=== PATIENT | female | born 1940 | race Caucasian/White ===

== ENCOUNTER → 2019-06-06 13:52 | Outpatient (CLI) | payer MEDICARE, OTHER, SELFPAY ==
[2019-05-09 13:48] VITALS: BMI 24.6
--- NOTE | 2019-06-06 13:56 | ECHOD_ITS ---
Reason For Study: Afib/Flutter Procedure This was a 2D Doppler, Color Flow transthoracic echocardiogram. Exam performed in department. Left Ventricle Normal LV size. Mild concentric left ventricular hypertrophy. The estimated ejection fraction is 60 %. Stage 3 diastolic dysfunction. No regional wall motion abnormalities noted. Right Ventricle Normal RV size. ICD or pacer leads identified within the right ventricle. Normal systolic function. Atria The left atrium is moderately enlarged. The right atrium is moderately enlarged. Mitral Valve There is moderate mitral annular calcification. Bileaflet diffuse mitral valve thickening. Mild focal mitral valve calcification, bileaflet. Mild-Moderate (1-2+) eccentric mitral valve insufficiency. Tricuspid Valve Normal tricuspid valve. Mild to moderate (1-2+) tricuspid valve insufficiency. Pulmonary artery systolic pressure is 40 mmHg. Aortic Valve Normal aortic valve. Trisinus/trileaflet aortic valve. Pulmonic Valve Normal pulmonic valve. Great Vessels Normal aortic root. The pulmonary artery is normal size. Normal inferior vena cava. Pericardium/Pleural No pericardial effusion. MMode/2D Measurements & Calculations LVIDd: 4.7 cm IVSd: 1.4 cm LA dimension: 4.7 cm LVIDs: 2.8 cm LVPWd: 1.0 cm RVDd: 4.5 cm FS: 41.0 % LAV(MOD-bp): 111.4 ml LA A4 area: 31.1 cm2 RA A4 area: 27.6 cm2 LAV(MOD-bp) Indexed: 61.3 ml/m2 LAV(MOD-sp2): 113.1 ml LAV(MOD-sp4): 115.0 ml Time Measurements MV dec time: 0.17 sec Doppler Measurements & Calculations MV E max sha: 129.4 cm/sec Lat Peak E' Sha: 15.4 cm/sec Med Peak E' Sha: 7.8 cm/sec MV A max sha: 27.5 cm/sec E/E' lat: 8.4 E/E' med: 16.5 MV E/A: 4.7 MV V2 max: 129.0 cm/sec MV P1/2t max sha: 129.0 cm/sec Ao V2 max: 150.4 cm/sec MV max P.7 mmHg MV P1/2t: 77.9 msec Ao max P.1 mmHg MV V2 mean: 59.1 cm/sec MV dec slope: 485.4 cm/sec2 MV mean P.7 mmHg MVA(P1/2t): 2.8 cm2 MV V2 VTI: 29.5 cm LV V1 max: 109.5 cm/sec MR max sha: 517.3 cm/sec PA V2 max: 124.2 cm/sec LV V1 max P.8 mmHg MR max P.0 mmHg MR mean sha: 372.3 cm/sec MR mean P.5 mmHg MR VTI: 161.7 cm PI end-d sha: 74.2 cm/sec TR max sha: 299.1 cm/sec TR max P.8 mmHg Interpretation Summary Normal LV size. Mild concentric left ventricular hypertrophy. The estimated ejection fraction is 60 %. Stage 3 diastolic dysfunction. Mild to moderate (1-2+) tricuspid valve insufficiency. Ordering Physician: Skip Waters Referring Physician: Logan Phan Performed By: Shawn Pabon RCS
== END ==
PROVIDERS: Family Provider Family Medicine; PCP Family Medicine; Referring Provider Internal Medicine Cardiovascular Disease; Visit Provider Internal Medicine Cardiovascular Disease
DX: I48.0 Paroxysmal atrial fibrillation (principal)
CPT/HCPCS: 93306

== ENCOUNTER → 2019-11-09 06:55 | Outpatient (REF) | payer MEDICARE, OTHER, SELFPAY ==
[2019-05-09 13:48] VITALS: BMI 24.6
[2019-11-09 07:58] LABS: Mean Corpuscular Hgb 28.5 pg (27.0-32.0); Mean Platelet Vol. 10.2 fl (6.2-12.0); Platelet Count 187 K/mm3 (150-450); RBC Distribution Width SD 44.8 fl (35.1-43.9); Red Blood Count 4.21 M/mm3 (4.2-5.4); White Blood Count 6.3 K/mm3 (4.4-11.0)
[2019-11-09 07:59] LABS: BUN 14 mg/dL (7-18); Creatinine, Serum 0.58 mg/dL (0.55-1.02); Glucose 87 mg/dL (74-106)
[2019-11-09 08:00] LABS: AST(SGOT) 21 U/L (15-37); Alanine Aminotransfer ALT/SGPT 19 U/L (13-56); Albumin, Serum 3.8 g/dL (3.2-5.0); Alkaline Phosphatase 119 U/L (45-117); Anion Gap 4 (5-15); Chloride 108 mmol/L (98-107); EST Glomerular Filtration Rate 106 mL/min (>60); Est Glom Filt Rate - Afr Amer 128 mL/min (>60); Potassium 3.9 mmol/L (3.5-5.1); Protein, Total 7.8 g/dL (6.4-8.2); Sodium Level 141 mmol/L (136-145)
[2019-11-09 08:03] LABS: Color, Urine Yellow (Yellow); Glucose, Dipstick Normal (Normal); Ketone-Dipstick Negative (Negative); Leukocyte Esterase-Dipstick Negative /ul (Negative); Nitrite-Dipstick Negative (Negative); Occult Blood-Urine Negative /ul (Negative); Protein-Dipstick Negative (Negative); Urine Bilirubin Dipstick Negative (Negative); Urine Clarity Clear (Clear); Urine Urobilinogen Normal (Normal)
== END ==
LOC: OLS.DANBUR 06:55
PROVIDERS: PCP Family Medicine; Visit Provider Family Medicine
DX: I48.91 Unspecified atrial fibrillation (principal); F03.90 Unspecified dementia, unspecified severity, without behavioral disturbance, psychotic disturbance, mood disturbance, and anxiety; F41.9 Anxiety disorder, unspecified; R14.0 Abdominal distension (gaseous)
CPT/HCPCS: 36415; 80053; 81002; 85027; 87086; 87088

== ENCOUNTER → 2020-12-04 05:00 | Outpatient (REF) | payer MEDICARE, OTHER, SELFPAY ==
[2019-05-09 13:48] VITALS: BMI 24.6
[2020-12-04 07:21] LABS: Hematocrit 40.8 % (37-47); Hemoglobin 12.6 g/dL (12.0-15.0); Mean Corp Hgb Conc 30.9 g/dL (32-36); Mean Corpuscular Hgb 28.4 pg (27.0-32.0); Mean Corpuscular Volume 91.9 fL (81-99); Mean Platelet Vol. 10.4 fl (6.2-12.0); Platelet Count 230 K/mm3 (150-450); RBC Distribution Width CV 13.1 % (11.6-14.6); Red Blood Count 4.44 M/mm3 (4.2-5.4); White Blood Count 7.4 K/mm3 (4.4-11.0)
[2020-12-04 08:15] LABS: Vitamin B12 502 pg/mL (211-911); Vitamin D,25 Hydroxy 11.6 ng/mL
[2020-12-04 08:25] LABS: AST(SGOT) 22 U/L (15-37); Alanine Aminotransfer ALT/SGPT 16 U/L (13-56); Albumin, Serum 3.9 g/dL (3.2-5.0); Alkaline Phosphatase 116 U/L (45-117); Anion Gap 5 (5-15); BUN 16 mg/dL (7-18); BUN/Creat Ratio 26.7 RATIO (10-20); Calcium,Total 9.1 mg/dL (8.5-10.1); Chloride 107 mmol/L (98-107); EST Glomerular Filtration Rate 102 mL/min (>60); Est Glom Filt Rate - Afr Amer 124 mL/min (>60); Globulin 4.1 g/dL (2.2-4.2); Glucose 92 mg/dL (74-106); Sodium Level 140 mmol/L (136-145); Thyroid Stim Hormone (TSH) 2.37 uIU/mL (0.358-3.74)
== END ==
LOC: OLS.DANBUR 05:00
PROVIDERS: PCP Family Medicine; Visit Provider Family Medicine
DX: F41.9 Anxiety disorder, unspecified (principal); I48.91 Unspecified atrial fibrillation; I49.5 Sick sinus syndrome; F02.80 Dementia in other diseases classified elsewhere, unspecified severity, without behavioral disturbance, psychotic disturbance, mood disturbance, and anxiety
CPT/HCPCS: 36415; 80053; 82306; 82607; 82746; 84443; 85027

== ENCOUNTER → 2021-01-29 05:00 | Outpatient (REF) | payer MEDICARE, OTHER, SELFPAY ==
[2019-05-09 13:48] VITALS: BMI 24.6
[2021-01-29 07:47] LABS: Cholesterol 118 mg/dL (200); High Density Lipoprotein 53 mg/dL; Triglycerides 46 mg/dL; Very Low Density Lipoprotein 9 mg/dL (5-40)
== END ==
LOC: OLS.DANBUR 05:00
PROVIDERS: PCP Family Medicine; Referring Provider Family Medicine; Visit Provider Family Medicine
DX: I48.91 Unspecified atrial fibrillation (principal); F41.9 Anxiety disorder, unspecified; F02.80 Dementia in other diseases classified elsewhere, unspecified severity, without behavioral disturbance, psychotic disturbance, mood disturbance, and anxiety; I49.5 Sick sinus syndrome; E78.5 Hyperlipidemia, unspecified
CPT/HCPCS: 36415; 80061

== ENCOUNTER → 2021-02-05 05:00 | Outpatient (REF) | payer MEDICARE, OTHER, SELFPAY ==
[2019-05-09 13:48] VITALS: BMI 24.6
[2021-02-05 07:33] LABS: Cholesterol 109 mg/dL (200); High Density Lipoprotein 51 mg/dL; Triglycerides 51 mg/dL; Very Low Density Lipoprotein 10 mg/dL (5-40)
== END ==
LOC: OLS.DANBUR 05:00
PROVIDERS: PCP Family Medicine; Visit Provider Family Medicine
DX: E78.5 Hyperlipidemia, unspecified (principal)
CPT/HCPCS: 36415; 80061

== ENCOUNTER → 2021-03-12 05:00 | Outpatient (REF) | payer MEDICARE, OTHER, SELFPAY ==
[2019-05-09 13:48] VITALS: BMI 24.6
[2021-03-12 09:02] LABS: Vitamin D,25 Hydroxy 73.4 ng/mL
== END ==
LOC: OLS.DANBUR 05:00
PROVIDERS: PCP Family Medicine; Visit Provider Family Medicine
DX: E55.9 Vitamin D deficiency, unspecified (principal)
CPT/HCPCS: 36415; 82306

== ENCOUNTER → 2021-05-06 05:00 | Outpatient (REF) | payer MEDICARE, OTHER, SELFPAY ==
[2021-05-05 14:05] VITALS: BMI 23.3
[2021-05-06 08:07] LABS: Mucous, Urine 0 SEEN /hpf (<or=2+)
[2021-05-06 08:26] LABS: Color, Urine Yellow (Yellow); Glucose, Dipstick Normal (Normal); Ketone-Dipstick Negative (Negative); Leukocyte Esterase-Dipstick 500 /ul (Negative); Nitrite-Dipstick Negative (Negative); Occult Blood-Urine 150 /ul (Negative); Protein-Dipstick 100 mg/dl (Negative); Specific Gravity, Urine 1.015 (1.002-1.030); Urine Bilirubin Dipstick Negative (Negative); Urine Clarity Cloudy (Clear); Urine Urobilinogen Normal (Normal)
[2021-05-06 08:32] LABS: Bacteria 1+ /hpf (None Seen); Red Blood Cells-Urine 10-25 SEEN /hpf (0-5); Squamous Epithelial Cells - UA 0-5 SEEN /hpf (5-10); White Blood Cells 50-100 SEEN /hpf (0-5)
== END ==
LOC: OLS.DANBUR 05:00
PROVIDERS: PCP Family Medicine; Referring Provider Internal Medicine Cardiovascular Disease; Visit Provider Internal Medicine Cardiovascular Disease
DX: E78.5 Hyperlipidemia, unspecified (principal); I49.5 Sick sinus syndrome; I48.11 Longstanding persistent atrial fibrillation; Z95.0 Presence of cardiac pacemaker
CPT/HCPCS: 81001

== ENCOUNTER 2021-05-06 08:00 | Day surgery (SDC) | payer MEDICARE, OTHER, SELFPAY ==
[2021-04-30 14:13] VITALS: BMI 24.6
--- NOTE | 2021-05-05 12:06 | RAD_ITS ---
STUDY: X-RAY CHEST REASON FOR EXAM: Female, 80 years old. For PPM generator change TECHNIQUE: PA and lateral views of the chest. COMPARISON: None. FINDINGS: Mild degree of increased interstitial markings at the lung bases suggests a mild degree of basilar scarring. There is no demonstrated pleural abnormality. There is mild cardiac enlargement. A left-sided dual-chamber pacemaker is seen. Normal mediastinum and britt. Normal visualized pulmonary arteries. There is atherosclerotic calcification of the aortic arch with tortuosity. There is demineralization of the osseous structures. Normal visualized ribs, clavicles, and shoulders. There is no demonstrated abnormality of the visualized soft tissue structures of the upper abdomen. RAD/Chest PA and Lateral IMPRESSION: Mild degree of basilar scarring. Electronically Signed: Delio De La Vega MD at 22:43 EDT , Service support ,
[2021-05-05 13:00] LABS: Hematocrit 37.9 % (37-47); Hemoglobin 11.6 g/dL (12.0-15.0); Mean Corp Hgb Conc 30.6 g/dL (32-36); Mean Corpuscular Hgb 27.6 pg (27.0-32.0); Mean Platelet Vol. 9.6 fl (6.2-12.0); Platelet Count 265 K/mm3 (150-450); RBC Distribution Width CV 14.2 % (11.6-14.6); Red Blood Count 4.21 M/mm3 (4.2-5.4); White Blood Count 7.7 K/mm3 (4.4-11.0)
[2021-05-05 13:09] LABS: International Normalized Ratio 1.3; Prothrombin Time (Protime)PT. 15.2 SECONDS (11.7-14.9)
[2021-05-05 13:36] LABS: Anion Gap 5 (5-15); BUN 14 mg/dL (7-18); Chloride 105 mmol/L (98-107); EST Glomerular Filtration Rate 126 mL/min (>60); Est Glom Filt Rate - Afr Amer 153 mL/min (>60); Glucose 77 mg/dL (74-106); Potassium 3.8 mmol/L (3.5-5.1); Sodium Level 138 mmol/L (136-145)
[2021-05-05 14:05] VITALS: BMI 23.3
--- NOTE | 2021-05-06 10:33 | CL.IE_ITS ---
Patient: JUSTIN WILSON Study Date: 05/06/2021 Performing: Skip Waters MD : 1940 Age: 80 Gender: female PROCEDURES PERFORMED [id number] REMOVAL+REPLACEMENT PACER-DUAL LEAD INDICATIONS Sinoatrial node dysfunction/Sick sinus syndrome PROCEDURE DETAILS The patient was brought to the Catheterization Lab in the postabsorptive nonsedated state. Infor med consent was obtained prior to the procedure. Local anesthetic was given subcutaneously to the le ft upper chest area with Lidocaine 2%. Incision was made to the left upper chest. PPM ventricular tamie d testing performed. PPM ventricular lead testing performed. PPM atrial lead testing performed. PPM g enerator was removed. Device pocket was irrigated with antibiotic. PPM generator was attached to the lead(s) and inserted into the pocket. Subcutaneous closure was completed with 3-0 Vicryl. Skin closur e was completed with 4-0 Vicryl. Instrument, sponge, and needle counts were noted to be normal. The p atient tolerated the procedure well. Estimated Blood Loss: 15 ml's IMPLANTED / EX-PLANTED DEVICES EXPLANTED DEVICE(S): PPM Generator - Environmental Systems Coordinator: [employer], Model # [id number] , Serial # [id number] IMPLANTED DEVICE(S): PPM Generator - Environmental Systems Coordinator: [employer], Model # [id number] , Serial # [id number] DEVICE PARAMETERS ATRIAL LEAD PARAMETERS: P wave- 0.5 (mV) impedence- 404 (OHMS) VENTRICULAR LEAD PARAMETERS: R wave- 6.6 (mV) Current- 1.2 (mA) threshold- 0.5 (V) impedence- 430 (OHMS) DEVICE PARAMETERS: Mode - VVIR lower rate - 50 upper rate - 130 rate response off Mode- VVIR Lower rate- 50 Upper rate- 130 CONCLUSIONS / RECOMMENDATIONS Device Conclusions: Successful implantation of a dual chamber pacemaker Device Recommendations: Follow up with Primary Care Physician PROCEDURE MEDICATIONS Versed 1 mg IV Oxygen: 2 L/min via nasal cannula Ancef 2 Gm IV @ 05/06/2021 09:29:52 Signed By Skip Waters MD On 05/06/2021 10:33:12 Skip Waters MD
== END 2021-05-06 11:55 | disposition skilled nursing facility (03) ==
LOC: CLSP 08:02
PROVIDERS: PCP Family Medicine; Referring Provider Internal Medicine Cardiovascular Disease; Visit Provider Internal Medicine Cardiovascular Disease
DX: I49.5 Sick sinus syndrome (principal); I48.0 Paroxysmal atrial fibrillation; I48.11 Longstanding persistent atrial fibrillation; I27.21 Secondary pulmonary arterial hypertension; I10 Essential (primary) hypertension; E78.5 Hyperlipidemia, unspecified; F03.90 Unspecified dementia, unspecified severity, without behavioral disturbance, psychotic disturbance, mood disturbance, and anxiety; F41.9 Anxiety disorder, unspecified; Z79.01 Long term (current) use of anticoagulants; Z79.899 Other long term (current) drug therapy; Z95.0 Presence of cardiac pacemaker; Z96.652 Presence of left artificial knee joint
CPT/HCPCS: 33228; 36415; 71046; 80048; 81001; 85027; 85610; 99152; 99153; J7040; J7050

== ENCOUNTER 2021-12-22 06:45 | Outpatient (REF) | payer MEDICARE, OTHER, SELFPAY ==
[2021-12-22 06:46] LABS: Bacteria 0 SEEN /hpf (None Seen); Mucous, Urine 0 SEEN /hpf (<or=2+); Red Blood Cells-Urine 0 SEEN /hpf (0-5); Squamous Epithelial Cells - UA 0 SEEN /hpf (5-10); White Blood Cells 0 SEEN /hpf (0-5)
[2021-12-22 07:02] LABS: Color, Urine Yellow (Yellow); Glucose, Dipstick Normal (Normal); Ketone-Dipstick Negative (Negative); Leukocyte Esterase-Dipstick Negative /ul (Negative); Nitrite-Dipstick Negative (Negative); Occult Blood-Urine 10 /ul (Negative); Protein-Dipstick Negative (Negative); Specific Gravity, Urine 1.015 (1.002-1.030); Urine Bilirubin Dipstick Negative (Negative); Urine Clarity Clear (Clear); Urine Urobilinogen Normal (Normal)
== END 2021-12-22 23:59 | disposition home or self-care (01) ==
LOC: OLS.DANBUR 06:45
PROVIDERS: PCP Family Medicine; Visit Provider Family Medicine
DX: N39.0 Urinary tract infection, site not specified (principal)
CPT/HCPCS: 81001; 87086; 87088

== ENCOUNTER 2021-12-29 21:03 | Emergency (ER) | payer MEDICARE, OTHER, SELFPAY ==
[2021-12-29 21:04] VITALS: BP 120/57; PULSE 53; RESP 16; TEMP 36.7; O2SAT 97; BMI 23.3
[2021-12-29 22:09] VITALS: O2SAT 96
--- NOTE | 2021-12-29 22:25 | CT_ITS ---
STUDY: CT BRAIN WITHOUT CONTRAST REASON FOR EXAM: Female, 81 years old. Head injury, s/p fall RADIATION DOSAGE (If Supplied By Facility): CTDIvol = ( 44.99 ) mGy, DLP = ( 1659.71 ) mGycm TECHNIQUE: Transaxial CT imaging of the brain was performed without administration of intravenous contrast material. Individualized dose optimization techniques were used for this CT. COMPARISON: No relevant priors. FINDINGS: Normal soft tissue structures. Normal calvarium. Normal size ventricles and extra-axial spaces for the patient''s age. Normal white matter tracts of the cerebral hemispheres. Normal basal ganglia and thalami. Normal brainstem. Normal cerebellum. There is no intracranial hemorrhage. There are no findings of an acute ischemic infarction. Normal visualized paranasal sinuses. CT/Brain/Head without Contrast IMPRESSION: Normal unenhanced CT scan of the brain. Electronically Signed: Andrew Adams MD at 23:05 EDT ,
[2021-12-29] MEDS: LORazepam 2 MG/ML Syringe 1 MG IV (22:30)
--- NOTE | 2021-12-29 23:43 | ED.VIS.FALL ---
HPI HPI - Fall History of Present Illness Chief Complaint: Fall Informant: SNF and other (Caregiver) Occured/Mechanism Occurred: Weeks (2) Pain/Injury Pain Location: head Worsened by: Nothing Relieved by: Nothing Associated Symptoms Associated Symptoms: Negative for Parasthesias, Weakness, Inability to ambulate and Loss of consciousness Narrative Narrative: Patient presents after a fall that occurred on 12/17/2021. Caregiver noticed that the patient had unequal pupils yesterday. Caregiver also noticed that the patient started having a shuffling gait yesterday. There is no reported loss of consciousness after the fall. Caregiver noticed the redness to the right side of her head and face. He also noticed an abrasion on her nose. He states the patient is otherwise acting normally. Patient has a history of dementia and is a poor historian. [facility] Medical History Anxiety Dementia Diastolic dysfunction Hyperlipidemia Longstanding persistent atrial fibrillation Paroxysmal atrial fibrillation Secondary pulmonary arterial hypertension Sick sinus syndrome Home Medications alprazolam 0.25 mg tablet 0.25 mg PO BID PRN 05/09/19 [History Last Taken Unknown] apixaban 5 mg tablet 5 mg PO BID 05/09/19 [History Last Taken 05/04/21] donepezil 5 mg tablet 5 mg PO DAILY 05/09/19 [History Last Taken Unknown] memantine 10 mg tablet 10 mg PO BID 05/09/19 [History Last Taken Unknown] mirabegron 25 mg tablet,extended release 24 hr 25 mg PO DAILY 05/09/19 [History Last Taken Unknown] simvastatin 20 mg tablet 20 mg PO QHS 05/09/19 [History Last Taken Unknown] venlafaxine 37.5 mg capsule,extended release 24 hr 37.5 mg PO DAILY 05/09/19 [History Last Taken Unknown] Allergy/AdvReac Type Severity Reaction Status Date / Time erythromycin base Allergy Rash Verified 12/29/21 21:08 Family History Other Poor historian Surgical History 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) Presence of permanent cardiac pacemaker (05/06/21) Social History Smoking Status: Never smoker ROS ROS ED Review of Systems ROS Unobtainable: due to mental condition EXAM Physical Exam Const Vital Signs: 12/29/21 21:04 12/29/21 22:09 Temperature 98.1 F Temperature Source Temporal Pulse Rate 53 L Respiratory Rate 16 Respiratory Effort Normal Non-Labored Respiratory Depth Normal Respiratory Pattern Normal Blood Pressure 120/57 L Blood Pressure Mean 78 Pulse Ox 97 96 Oxygen Delivery Method Room Air Positive well nourished and well developed General Appearance ED: well developed and NAD HEENT HEENT Narrative: There is a superficial abrasion over the bridge of the nose. There is no active bleeding. There is no bony crepitance or step-off. Eyes EOMs intact bilaterally Eyes Narrative: The left pupil was 5 mm and reactive. The right pupil was 4 mm and reactive. Neck full ROM Resp normal respiratory effort and clear to auscultation bilaterally Cardio regular rate and regular rhythm GI non-tender Palpation: soft Neuro CN's II-XII intact bilaterally, moves all extremities, no focal motor deficits and no sensory deficits noted Sensorium / Orientation: alert MDM MDM MDM Narrative Medical decision making narrative: Patient was given a dose of Ativan here. CT scan of the brain was obtained. There is no acute intracranial abnormality. This was interpreted by the radiologist and reviewed by myself. Caregiver was advised of the findings. Patient will be discharged back to the extended care facility. Caregiver understood and was agreeable with the plan. All questions were answered. Radiography Diagnostic Testing: Clinical Impression(s) from Imaging Studies Brain CT 12/29/21 22:25 IMPRESSION: Normal unenhanced CT scan of the brain. Electronically Signed: Andrew Adams MD at 23:05 EDT , Discharge Plan Triage Chief Complaint: Fall ED Provider: Troy Romo Dx/Rx/DC Orders Clinical Impression: Closed head injury Instructions: ED Head Injury (Adult) Prescriptions: No Action venlafaxine [Effexor XR] 37.5 mg capsule,extended release 24hr 37.5 mg PO DAILY RF: 0 memantine [Namenda] 10 mg tablet 10 mg PO BID RF: 0 donepezil [Aricept] 5 mg tablet 5 mg PO DAILY RF: 0 simvastatin 20 mg tablet 20 mg PO QHS RF: 0 Eliquis 5 mg tablet 5 mg PO BID RF: 0 Myrbetriq 25 mg tablet extended release 24 hr 25 mg PO DAILY RF: 0 alprazolam 0.25 mg tablet 0.25 mg PO BID PRN (Reason: Anxiety) RF: 0 Primary Care Provider: Logan Phan Referrals: Logan Phan MD [Primary Care Provider] - 5-7 Days Disposition Disposition: Home, Self Care
--- NOTE | 2021-12-29 23:45 | ED.RN ---
NURSE TO NURSE CALLED TO SARABJIT DOS SANTOS
[2021-12-30 00:08] VITALS: RESP 16
== END 2021-12-30 00:08 | disposition skilled nursing facility (03) ==
PROVIDERS: Emergency Provider Emergency Medicine; PCP Family Medicine; Visit Provider Emergency Medicine
DX: S00.31XA Abrasion of nose, initial encounter (principal); F03.90 Unspecified dementia, unspecified severity, without behavioral disturbance, psychotic disturbance, mood disturbance, and anxiety; I27.21 Secondary pulmonary arterial hypertension; I48.0 Paroxysmal atrial fibrillation; W19.XXXA Unspecified fall, initial encounter; E78.5 Hyperlipidemia, unspecified; Z79.01 Long term (current) use of anticoagulants; Z79.899 Other long term (current) drug therapy; Z96.652 Presence of left artificial knee joint; Z95.0 Presence of cardiac pacemaker
CPT/HCPCS: 70450; 96374; 99285; A4216

== ENCOUNTER → 2022-02-04 | Outpatient (REF) | payer MEDICARE, SELFPAY ==
[2022-02-04 08:30] LABS: Hemoglobin 10.6 g/dL (12.0-15.0); Mean Corp Hgb Conc 30.3 g/dL (32-36); Mean Corpuscular Hgb 28.8 pg (27.0-32.0); Mean Corpuscular Volume 95.1 fL (81-99); Mean Platelet Vol. 10.1 fl (6.2-12.0); Platelet Count 184 K/mm3 (150-450); RBC Distribution Width CV 14.5 % (11.6-14.6); RBC Distribution Width SD 50.1 fl (35.1-43.9); Red Blood Count 3.68 M/mm3 (4.2-5.4); White Blood Count 5.9 K/mm3 (4.4-11.0)
[2022-02-04 09:00] LABS: ALB/GLOB Ratio 0.9 RATIO (0.9-2.4); AST(SGOT) 25 U/L (15-37); Alanine Aminotransfer ALT/SGPT 15 U/L (13-56); Albumin, Serum 3.7 g/dL (3.2-5.0); Alkaline Phosphatase 108 U/L (45-117); Anion Gap 5 (5-15); BUN 20 mg/dL (7-18); BUN/Creat Ratio 37.8 RATIO (10-20); Calcium,Total 8.6 mg/dL (8.5-10.1); Chloride 108 mmol/L (98-107); Creatinine, Serum 0.53 mg/dL (0.55-1.02); EST Glomerular Filtration Rate 118 mL/min (>60); Est Glom Filt Rate - Afr Amer 143 mL/min (>60); Globulin 3.9 g/dL (2.2-4.2); Glucose 85 mg/dL (74-106); Potassium 3.9 mmol/L (3.5-5.1); Protein, Total 7.6 g/dL (6.4-8.2); Sodium Level 140 mmol/L (136-145)
== END | disposition home or self-care (01) ==
LOC: OLS.DANBUR 05:00
PROVIDERS: PCP Family Medicine; Referring Provider Family Medicine; Visit Provider Family Medicine
DX: M79.89 Other specified soft tissue disorders (principal)
CPT/HCPCS: 36415; 80053; 85027

== ENCOUNTER 2022-04-15 20:59 | Emergency (ER) | payer OTHER, SELFPAY ==
[2022-04-15 21:00] VITALS: BP 165/101; PULSE 61; RESP 15; TEMP 36.2; O2SAT 99; BMI 26.3
--- NOTE | 2022-04-15 23:37 | CT_ITS ---
EXAM: CT HEAD WITHOUT INTRAVENOUS CONTRAST CLINICAL INDICATION: trauma/fall TECHNIQUE: Multiple axial images were obtained of the head without intravenous contrast. This CT exam was performed using one or more of the following dose reduction techniques: automated exposure control, adjustment of the mA and/or kV according to patient size, and/or use of iterative reconstruction technique. This report was created using [employer] report generation technology. COMPARISON: 12/29/2021 FINDINGS: BRAIN AND EXTRA-AXIAL SPACES: Diffuse cerebral volume loss. Periventricular small vessel ischemic changes. No intra- or extra-axial hemorrhage. No intracranial mass or mass effect. Posterior fossa structures are unremarkable. No hydrocephalus. Basal cisterns are patent. BONES/JOINTS: Incompletely visualized fracture involving the anterior and lateral margins of the right maxillary sinus. No discrete lytic or blastic abnormalities. SOFT TISSUES: Significant right periorbital and maxillary soft tissue swelling. VASCULATURE: Vascular calcifications. SINUSES: Blood in the right maxillary sinus. MASTOID AIR CELLS: Unremarkable. Clear. ORBITS: Visualized globes, extraocular muscles, optic nerves and retrobulbar fat appear unremarkable. CT/Brain/Head without Contrast IMPRESSION: 1. No acute intracranial abnormalities. 2. Age-related changes. 3. Significant right periorbital and maxillary soft tissue swelling. 4. Incompletely visualized fracture involving the anterior and lateral margins of the right maxillary sinus. Electronically Signed: Valdo Easley MD at 0:52 EDT ,
--- NOTE | 2022-04-15 23:38 | ED.VIS.FALL ---
HPI HPI - Fall History of Present Illness Chief Complaint: Head Injury Informant: patient and friend Occured/Mechanism Occurred: Today Mechanism/Context: Yes same level fall and Yes trip Narrative: while walking around end of her bed in assisted living Pain/Injury Location: face/head Current Severity: Mild Maximum Severity: Moderate Worsened by: palpation Relieved by: leaving alone Associated Symptoms Length of loss of consciousness: unk if LOC or not Narrative Narrative: Assisted living patient with severe dementia had a trip and fall today, found facedown awake with right facial/head trauma. No vomiting since then. Friend is here, no family is in this area, she states she is at her baseline mental status as far she knows her. Is DNRCC only. Friend states that she helped her into and out of the car to get here, and she moves all her extremities very well without any difficulty. [facility] Medical History Anxiety Dementia Diastolic dysfunction Hyperlipidemia Longstanding persistent atrial fibrillation Paroxysmal atrial fibrillation Secondary pulmonary arterial hypertension Sick sinus syndrome Home Medications apixaban 5 mg tablet (Eliquis) 5 mg PO BID 05/09/19 [History Last Taken 05/04/21] donepezil 5 mg tablet (Aricept) 5 mg PO DAILY 05/09/19 [History Last Taken Unknown] memantine 10 mg tablet (Namenda) 10 mg PO BID 05/09/19 [History Last Taken Unknown] mirabegron 25 mg tablet,extended release 24 hr (Myrbetriq) 25 mg PO DAILY 05/09/19 [History Last Taken Unknown] simvastatin 20 mg tablet 20 mg PO QHS 05/09/19 [History Last Taken Unknown] Allergy/AdvReac Type Severity Reaction Status Date / Time erythromycin base Allergy Rash Verified 12/29/21 21:08 Family History Other Poor historian Surgical History 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) Presence of permanent cardiac pacemaker (05/06/21) Social History Smoking Status: Never smoker ROS [facility] ED ENT ENT ED: Reports facial pain EXAM Physical Exam Const Vital Signs: 04/15/22 21:00 04/15/22 23:24 04/16/22 02:29 Temperature 97.2 F L Temperature Source Temporal Pulse Rate 61 72 Respiratory Rate 15 16 Respiratory Effort Normal Blood Pressure 165/101 H Blood Pressure Mean 122 Pulse Ox 99 94 Oxygen Delivery Method Room Air Room Air Room Air Positive well nourished and well developed General Appearance ED: well developed and NAD HEENT Reports TM's clear and moist mucous membranes HEENT Narrative: Patient has obvious contusion and abrasion to the right face with diffuse swelling in the right periorbital area, zygoma, down into the maxilla. Tender in the zygomatic arch, no deformities or instability, nontender at the maxilla. No nasal tenderness or active epistaxis. No septal hematoma. normocephalic Tympanic Membrane ED: Yes TM's clear Eyes PERRL and EOMs intact bilaterally Eyes Narrative: No evidence of globe trauma. Limited evaluation of the right eye due to swollen eyelids and difficulty opening Visual Acuity: other Other Details: no entrapment or pain with extraocular movements Neck full ROM and supple General: Negative for tenderness Chest Wall inspection of chest normal and palpation of chest normal Chest: symmetrical chest wall rise; Negative for crepitus or tenderness Resp normal respiratory effort and clear to auscultation bilaterally Percussion: other equal BS bilat Cardio regular rate, regular rhythm and no murmurs Rate: regular rate Rhythm: regular rhythm GI non-tender and non-distended Auscultation: normoactive bowel sounds Palpation: soft Back/Spine no CVA tenderness General Back: other FROM Cervical Spine: Negative for cervical spine tenderness Thoracic Spine / Upper Back: Negative for thoracic spinal tenderness Lumbar Spine / Lower Back: Negative for lumbar spinal tenderness Extremity normal to inspection General Extremety ED: Negative for edema, pulses abnormal or tenderness General Extremity: Negative for edema or pulses abnormal Neuro CN's II-XII intact bilaterally and no sensory deficits noted Neuro Narrative: Disoriented. At baseline per friend. Lexie Coma Scale: document GCS findings Spontaneous Obeys Commands Confused 14 Sensorium / Orientation: awake and alert Motor Exam: strength 5/5 throughout Skin no rashes or lesions noted and no wounds Lesions: no lesions Rashes: no rashes MDM MDM MDM Narrative Medical decision making narrative: CT does show maxillary sinus wall fracture on the right. No intracranial injury. Very unlikely to be surgical, she can follow-up with otolaryngology, we do not have anyone on-call to discuss with agnieszka. These do not routinely require prophylactic antibiotics. Advised not to blow her nose, and discharged back to [facility] with appropriate instructions and an ice pack. Radiography Diagnostic Testing: Clinical Impression(s) from Imaging Studies Brain CT 04/15/22 23:37 IMPRESSION: 1. No acute intracranial abnormalities. 2. Age-related changes. 3. Significant right periorbital and maxillary soft tissue swelling. 4. Incompletely visualized fracture involving the anterior and lateral margins of the right maxillary sinus. Electronically Signed: Valdo Easley MD at 0:52 EDT , Discharge Plan Triage Chief Complaint: Head Injury ED Provider: Mumtaz Jalloh Dx/Rx/DC Orders Clinical Impression: Fracture of maxillary sinus, Closed head injury, Accidental fall Instructions: Facial Fracture Prescriptions: No Action memantine [Namenda] 10 mg tablet 10 mg PO BID donepezil [Aricept] 5 mg tablet 5 mg PO DAILY simvastatin 20 mg tablet 20 mg PO QHS Eliquis 5 mg tablet 5 mg PO BID Myrbetriq 25 mg tablet extended release 24 hr 25 mg PO DAILY Primary Care Provider: Logan Phan Referrals: Bertin Telles MD [STAFF PHYSICIAN] - (Call for appointment) Logan Phan MD [Primary Care Provider] - Activity Restrictions/Additional Instructions: You have further evaluation of your right cheek bone fracture, call the ENT specialist above for an appointment. Very unlikely to be surgical, usually these heal on their own without the need for antibiotics. Avoid blowing nose as this could cause significant worsening swelling from air tracking up into the soft tissues of the face. Applying ice as needed is okay. Disposition Disposition: Home, Self Care
[2022-04-16 02:29] VITALS: PULSE 72; RESP 16; O2SAT 94
--- NOTE | 2022-04-16 03:40 | ED.RN ---
Report called to the nurse April at [place]. Denies questions. Family at bedside will be transporting patient back to [place].
[2022-04-16 03:55] VITALS: BP 154/61; PULSE 71; RESP 16
== END 2022-04-16 03:56 | disposition home or self-care (01) ==
PROVIDERS: Emergency Provider Emergency Medicine; PCP Family Medicine; Visit Provider Emergency Medicine
DX: S02.40CA Maxillary fracture, right side, initial encounter for closed fracture (principal); W18.09XA Striking against other object with subsequent fall, initial encounter; Y92.099 Unspecified place in other non-institutional residence as the place of occurrence of the external cause; I48.11 Longstanding persistent atrial fibrillation; I27.21 Secondary pulmonary arterial hypertension; I49.5 Sick sinus syndrome; E78.5 Hyperlipidemia, unspecified; Z66 Do not resuscitate; F03.90 Unspecified dementia, unspecified severity, without behavioral disturbance, psychotic disturbance, mood disturbance, and anxiety; F41.9 Anxiety disorder, unspecified; Z79.01 Long term (current) use of anticoagulants; Z79.899 Other long term (current) drug therapy; Z96.652 Presence of left artificial knee joint; Z95.0 Presence of cardiac pacemaker
CPT/HCPCS: 70450; 99282

== ENCOUNTER → 2023-03-03 | Outpatient (REF) | payer OTHER, SELFPAY ==
[2023-03-03 07:34] LABS: Hematocrit 33.7 % (37-47); Mean Corp Hgb Conc 29.7 g/dL (32-36); Mean Corpuscular Volume 94.4 fL (81-99); Mean Platelet Vol. 10.8 fl (6.2-12.0); Platelet Count 147 K/mm3 (150-450); RBC Distribution Width CV 15.1 % (11.6-14.6); RBC Distribution Width SD 53.2 fl (35.1-43.9); Red Blood Count 3.57 M/mm3 (4.2-5.4); White Blood Count 5.8 K/mm3 (4.4-11.0)
[2023-03-03 07:51] LABS: AST(SGOT) 14 U/L (15-37); Alanine Aminotransfer ALT/SGPT 9 U/L (13-56); Albumin, Serum 3.2 g/dL (3.2-5.0); Alkaline Phosphatase 108 U/L (45-117); Anion Gap 5 (5-15); BUN 20 mg/dL (7-18); BUN/Creat Ratio 36.9 RATIO (10-20); Calcium,Total 8.7 mg/dL (8.5-10.1); Chloride 111 mmol/L (98-107); Creatinine, Serum 0.54 mg/dL (0.55-1.02); EST Glomerular Filtration Rate 114 mL/min (>60); Est Glom Filt Rate - Afr Amer 138 mL/min (>60); Globulin 3.3 g/dL (2.2-4.2); Glucose 92 mg/dL (74-106); Protein, Total 6.5 g/dL (6.4-8.2); Sodium Level 143 mmol/L (136-145)
== END ==
LOC: OLS.DANBUR 05:00
PROVIDERS: PCP Family Medicine
DX: I48.91 Unspecified atrial fibrillation (principal); I49.5 Sick sinus syndrome
CPT/HCPCS: 36415; 80053; 85027

== ENCOUNTER 2023-03-19 16:21 | Emergency (ER) | payer OTHER, SELFPAY ==
[2023-03-19 16:22] VITALS: BP 148/78; PULSE 87; RESP 18; TEMP 36.6; O2SAT 97; BMI 32.3
[2023-03-19 16:46] VITALS: BP 121/60; PULSE 51; RESP 16; O2SAT 97
[2023-03-19] MEDS: predniSONE 20 MG Tablet 40 MG PO (16:55)
--- NOTE | 2023-03-19 17:03 | EX.ED.DYSGE1 ---
HPI History of Present Illness Chief Complaint: Allergic Reaction Informant: patient Onset/Context/Timing Onset: Today Context: Sudden Onset Timing: Continuous Quality: Redness, swelling Location: Left face and lower lip Worsened by: Possibly food Relieved by: Nothing Narrative Narrative: Patient presents today with possible allergic reaction that began today. Patient has a history of dementia and is a poor informant. half-way staff reports that the patient was eating and started developing some redness and swelling to the left side of her face and her lower lip. half-way staff reports that the patient did have some mild emesis after eating. Family denies any difficulty breathing. Family states patient does have a history of prior allergic reactions. [facility] Medical History Anxiety Dementia Diastolic dysfunction Hyperlipidemia Longstanding persistent atrial fibrillation Paroxysmal atrial fibrillation Secondary pulmonary arterial hypertension Sick sinus syndrome Home Medications apixaban 5 mg tablet (Eliquis) 5 mg PO BID 05/09/19 [History Last Taken 05/04/21] donepezil 5 mg tablet (Aricept) 5 mg PO DAILY 05/09/19 [History Last Taken Unknown] memantine 10 mg tablet (Namenda) 10 mg PO BID 05/09/19 [History Last Taken Unknown] mirabegron 25 mg tablet,extended release 24 hr (Myrbetriq) 25 mg PO DAILY 05/09/19 [History Last Taken Unknown] simvastatin 20 mg tablet 20 mg PO QHS 05/09/19 [History Last Taken Unknown] alprazolam 0.25 mg tablet (Xanax) 0.25 mg PO DAILY 06/01/22 [History Last Taken Unknown] loperamide 2 mg capsule 2 mg PO Q6H PRN 06/01/22 [History Last Taken Unknown] Allergy/AdvReac Type Severity Reaction Status Date / Time erythromycin base Allergy Rash Verified 03/19/23 16:27 Family History Other Poor historian Surgical History 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) Presence of permanent cardiac pacemaker (05/06/21) Social History Smoking Status: Never smoker ROS ROS ED Review of Systems ROS Unobtainable: due to mental status Constitutional Constitutional ED: Denies chills or fever(s) ENT ENT ED: Denies rhinorrhea or sore throat Cardiovascular Cardiovascular: Denies chest pain Respiratory/Chest Respiratory/Chest: Denies cough or dyspnea Gastrointestinal Gastrointestinal: Reports vomiting; Denies abdominal pain Integumentary Reports rash; Denies abscess Allergic/Immunologic Allergic/Immunologic ED: Reports mouth swelling and urticaria EXAM Physical Exam Const Vital Signs: 03/19/23 16:22 03/19/23 16:46 Temperature 97.8 F Temperature Source Temporal Pulse Rate 87 51 L Respiratory Rate 18 16 Blood Pressure 148/78 H 121/60 H Blood Pressure Mean 101 80 Pulse Ox 97 97 Oxygen Delivery Method Room Air Room Air Positive well nourished and well developed General Appearance ED: well developed and NAD HEENT Reports moist mucous membranes HEENT Narrative: Oropharynx is clear. Airway is patent. Neck supple and no JVD Resp normal respiratory effort and clear to auscultation bilaterally Cardio regular rate and regular rhythm GI non-tender and non-distended Palpation: soft Neuro CN's II-XII intact bilaterally and no sensory deficits noted Sensorium / Orientation: alert Motor Exam: strength 5/5 throughout Psych mental status grossly normal Skin Skin Narrative: There is some edema and erythema over the left cheek and entire lower lip. There are no vesicles or pustules noted. There are no petechia noted. There is no involvement of the mucous membranes. MDM MDM MDM Narrative Medical decision making narrative: Daughter was at the bedside and states this is very similar to prior allergic reactions. Patient will be given a dose of prednisone here. Patient was already given a dose of Benadryl by shelter staff. Patient will be observed in the emergency department. Patient will be discharged back to the extended care facility. Patient was instructed to follow-up with her primary care physician in 5 to 7 days. Daughter understood and was agreeable with plan. All questions were answered. Treatment and Re-Evaluation :: Patient was given a dose of prednisone here. Better on reevaluation. The erythema and edema has improved. Patient will be discharged back to the extended care facility. Patient was instructed to use Benadryl as needed for any swelling. Family understood and was agreeable with the plan. All questions were answered. Discharge Plan Triage Chief Complaint: Allergic Reaction ED Provider: Troy Romo Dx/Rx/DC Orders Clinical Impression: Allergic reaction Instructions: ED General Allergic Reactions Prescriptions: No Action memantine [Namenda] 10 mg tablet 10 mg PO BID donepezil [Aricept] 5 mg tablet 5 mg PO DAILY simvastatin 20 mg tablet 20 mg PO QHS Eliquis 5 mg tablet 5 mg PO BID Myrbetriq 25 mg tablet extended release 24 hr 25 mg PO DAILY loperamide 2 mg capsule 2 mg PO Q6H PRN alprazolam [Xanax] 0.25 mg tablet 0.25 mg PO DAILY Primary Care Provider: Logan Phan Referrals: Logan Phan MD [Primary Care Provider] - 5-7 Days Disposition Disposition: Home, Self Care
[2023-03-19 18:32] VITALS: BP 139/76; PULSE 51; RESP 18
--- NOTE | 2023-03-19 18:37 | ED.RN ---
THIS RN ATTEMPTED TO CALL CHANELLE MARTIN AT [facility] TO GIVE PT REPORT. PHONE WENT TO VOICEMAIL.
== END 2023-03-19 18:35 | disposition home or self-care (01) ==
LOC: ED 17:29
PROVIDERS: Emergency Provider Emergency Medicine; PCP Family Medicine; Visit Provider Emergency Medicine
DX: T78.40XA Allergy, unspecified, initial encounter (principal); R60.9 Edema, unspecified; R11.10 Vomiting, unspecified; F03.90 Unspecified dementia, unspecified severity, without behavioral disturbance, psychotic disturbance, mood disturbance, and anxiety; I27.21 Secondary pulmonary arterial hypertension; I48.11 Longstanding persistent atrial fibrillation; E78.5 Hyperlipidemia, unspecified; Z79.01 Long term (current) use of anticoagulants; Z79.899 Other long term (current) drug therapy
CPT/HCPCS: 99284

== ENCOUNTER 2023-03-23 21:11 | Emergency (ER) | payer OTHER, SELFPAY ==
[2023-03-23 21:12] VITALS: BP 143/90; PULSE 75; RESP 18; TEMP 37; O2SAT 95; BMI 29.0
--- NOTE | 2023-03-23 21:22 | CT_ITS ---
STUDY: CT BRAIN WITHOUT CONTRAST REASON FOR EXAM: Female, 82 years old. fall RADIATION DOSAGE (If Supplied By Facility): CTDIvol = ( 44.99 ) mGy, DLP = ( 829.85 ) mGycm TECHNIQUE: Transaxial CT imaging of the brain was performed without administration of intravenous contrast material. Individualized dose optimization techniques were used for this CT. COMPARISON: April 15, 2022. FINDINGS: Normal soft tissue structures. Normal calvarium. Calcific plaquing of the cavernous carotids Moderate atrophy and periventricular white matter ischemic changes.. Normal basal ganglia and thalami. Normal brainstem. Normal cerebellum. There is no intracranial hemorrhage. There are no findings of an acute ischemic infarction. Normal visualized paranasal sinuses. Postsurgical changes of the left orbit. CT/Brain/Head without Contrast IMPRESSION: Moderate atrophy and periventricular white matter ischemic change. No evidence for acute intracranial hemorrhage. Electronically Signed: Greg Ward MD at 21:43 EDT ,
--- NOTE | 2023-03-23 21:23 | EDS_ITS ---
HPI HPI - Fall History of Present Illness Chief Complaint: Fall Detail of Chief Complaint: Fall Informant: family Narrative Narrative: Patient presents to the emergency department after sustaining a fall. Patient p resents from extended-care facility and the aide was helping her get ready for bed. Patient lost her balance when she stood from wheelchair and fell onto her left hip. The aide is thought protected her head but it is unclear if she hit her head. Primary care physician wanted patient evaluated because she is on Eliquis and was concerned about internal bleeding per what the daughter tells me. The history comes from the daughter who is with her. Patient has dementia and really cannot give any history. [facility] Medical History Anxiety Dementia Diastolic dysfunction Hyperlipidemia Longstanding persistent atrial fibrillation Paroxysmal atrial fibrillation Secondary pulmonary arterial hypertension Sick sinus syndrome Home Medications apixaban 5 mg tablet (Eliquis) 5 mg PO BID 05/09/19 [History Last Taken 0 05/04/21] donepezil 5 mg tablet (Aricept) 5 mg PO DAILY 05/09/19 [History Last Taken Unknown] memantine 10 mg tablet (Namenda) 10 mg PO BID 05/09/19 [History Last Taken Unknown] mirabegron 25 mg tablet,extended release 24 hr (Myrbetriq) 25 mg PO DAILY 05/09/19 [History Last Taken Unknown] simvastatin 20 mg tablet 20 mg PO QHS 05/09/19 [History Last Taken Unknown] alprazolam 0.25 mg tablet (Xanax) 0.25 mg PO DAILY 06/01/22 [History Last Taken Unknown] loperamide 2 mg capsule 2 mg PO Q6H PRN 06/01/22 [History Last Taken Unknown] Allergy/AdvReac Type Severity Reaction Status Date / Time erythromycin base Allergy Rash Verified 03/23/23 21:51 Family History Other Poor historian Surgical History 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) Presence of permanent cardiac pacemaker (05/06/21) Social History Smoking Status: Never smoker ROS ROS ED Review of Systems ROS Unobtainable: due to mental status and other Constitutional Constitutional ED: Reports lethargy; Denies chills, fever(s), sweats or weight loss Eyes Eyes: Denies blurry vision, change in vision or diplopia ENT ENT ED: Denies rhinorrhea or sore throat Cardiovascular Cardiovascular: Reports racing heartbeat; Denies chest pain or orthopnea Respiratory/Chest Respiratory/Chest: Reports dyspnea and dyspnea on exertion; Denies cough, orthopnea or sputum Gastrointestinal Gastrointestinal: Denies abdominal pain, diarrhea, nausea or vomiting Genitourinary Genitourinary ED: Denies dysuria, hematuria or urinary frequency Musculoskeletal Musculoskeletal: Denies arthralgias, back pain, myalgias or neck pain Integumentary Denies abscess, Abrasions or rash Neurologic Neurologic: Denies headache(s) or weakness Psychiatric Psychiatric: Denies anxiety, depression or suicidal thoughts Endocrine Endocrinology: Denies polydipsia, polyphagia or polyuria Hematologic/Lymphatic Hematologic/Lymphatic: Denies easy bleeding, easy bruising or lymphadenopathy Allergic/Immunologic Allergic/Immunologic ED: Denies mouth swelling, tongue swelling or urticaria EXAM Physical Exam Const Vital Signs: 03/23/23 21:12 03/23/23 21:17 Temperature 98.6 F Temperature Source Oral Pulse Rate 75 Respiratory Rate 18 Respiratory Effort Normal Respiratory Depth Normal Respiratory Pattern Normal Blood Pressure 143/90 H Blood Pressure Mean 107 Pulse Ox 95 Oxygen Delivery Method Room Air Room Air Positive well nourished and well developed General Appearance ED: well developed and NAD HEENT Reports TM's clear and moist mucous membranes HEENT Narrative: No external evidence of trauma to her head normocephalic and atraumatic; Negative for trauma or tenderness Tympanic Membrane ED: Yes TM's clear Eyes PERRL and EOMs intact bilaterally General Eye ED: Negative for pale conjunctiva or scleral icterus Neck no lymphadenopathy, supple and no JVD General: Negative for tenderness Chest Wall inspection of chest normal and palpation of chest normal Chest: Negative for tenderness Resp normal respiratory effort and clear to auscultation bilaterally Effort and Inspection: Negative for respiratory distress or pain with movement Auscultation: Negative for rhonchi, wheezes or diminished lung sounds Cardio regular rate, regular rhythm, S1 normal heart sound, S2 normal heart sound and no murmurs Peripheral Pulses: pulses 2+ throughout GI normal to inspection, nondistended, normoactive bowel sounds, soft to palpation, non-tender, non-distended and no masses Back/Spine no CVA tenderness and no thoracic nor lumbar tenderness Extremity normal to inspection Extremity Narrative: Mild tenderness palpation over the left hip. There is no evidence of ecchymosis or bruising. There is no shortening or external rotation. She is neurovascular intact distally. General Extremety ED: Negative for edema General Extremity: Negative for edema Neuro oriented x3, CN's II-XII intact bilaterally, no sensory deficits noted and gait normal Sensorium / Orientation: awake, alert, oriented to person, oriented to place and oriented to time Motor Exam: strength 5/5 throughout and strength abnormal Psych mental status grossly normal Skin no rashes or lesions noted and no wounds MDM MDM MDM Narrative Medical decision making narrative: Patient with fall from standing witnessed by aide who attempted to catch her head so she did not injure herself but landed on her left hip. Because she is on Eliquis they wanted her evaluated. Patient apparently was able to put some weight on her left hip and assist in getting to the cot. I did obtain an x-ray of the hip and pelvis and these were interpreted by myself as no evidence of fracture or dislocation. Patient also had a CT scan of the brain without contrast that was unremarkable. This point we will discharge patient back to extended care facility. No other evidence of trauma noted on exam. Radiography Diagnostic Testing: Clinical Impression(s) from Imaging Studies Brain CT 03/23/23 21:22 IMPRESSION: Moderate atrophy and periventricular white matter ischemic change. No evidence for acute intracranial hemorrhage. Electronically Signed: Greg Ward MD at 21:43 EDT Reading Location ID and State: [facility] / [place] , Service support , Three-view x-rays of left hip and pelvis obtained interpreted by myself as no fractures or dislocations. Official report from radiology pending. Discharge Plan Triage Chief Complaint: Fall ED Provider: Moncho Taylor Dx/Rx/DC Orders Clinical Impression: Fall, Contusion of hip, left, Head injury Instructions: ED Contusion, Lower Extremity, ED Head Injury (Adult) Prescriptions: No Action memantine [Namenda] 10 mg tablet 10 mg PO BID donepezil [Aricept] 5 mg tablet 5 mg PO DAILY simvastatin 20 mg tablet 20 mg PO QHS Eliquis 5 mg tablet 5 mg PO BID Myrbetriq 25 mg tablet extended release 24 hr 25 mg PO DAILY loperamide 2 mg capsule 2 mg PO Q6H PRN alprazolam [Xanax] 0.25 mg tablet 0.25 mg PO DAILY Primary Care Provider: Logan Phan Referrals: Logan Phan MD [Primary Care Provider] - 3-5 Days Disposition Disposition: Home, Self Care
--- NOTE | 2023-03-23 21:30 | RAD_ITS ---
STUDY: X-RAY - PELVIS AND LEFT HIP REASON FOR EXAM: Female, 82 years old. fall TECHNIQUE: 3 views of the pelvis and hip. COMPARISON: None. FINDINGS: There is a non-specific bowel gas pattern. 2 small calcified intrauterine fibroids were observed.. Normal bilateral iliac wings, sacroiliac joints and visualized sacrum. Normal bilateral superior and inferior pubic rami. Normal pubic symphysis. Normal bilateral ischial tuberosities. Normal visualized femoral head. Mild narrowing of the superolateral component of the joint space and acetabular spurring RAD/HIP, UNI W/ Pelvis 2-3 Views IMPRESSION: Mild degenerative changes [. No acute fracture of the left hip or pelvis Electronically Signed: Greg Ward MD at 22:00 EDT ,
--- NOTE | 2023-03-23 22:38 | ED.RN ---
Report given to Ye about pt d/c.
== END 2023-03-24 00:58 | disposition home or self-care (01) ==
PROVIDERS: Emergency Provider Emergency Medicine; PCP Family Medicine; Visit Provider Emergency Medicine
DX: S09.90XA Unspecified injury of head, initial encounter (principal); F03.90 Unspecified dementia, unspecified severity, without behavioral disturbance, psychotic disturbance, mood disturbance, and anxiety; I27.21 Secondary pulmonary arterial hypertension; I48.0 Paroxysmal atrial fibrillation; S70.02XA Contusion of left hip, initial encounter; W05.0XXA Fall from non-moving wheelchair, initial encounter; E78.5 Hyperlipidemia, unspecified; Y92.129 Unspecified place in nursing home as the place of occurrence of the external cause; Z79.01 Long term (current) use of anticoagulants; Z79.899 Other long term (current) drug therapy; Z95.0 Presence of cardiac pacemaker
CPT/HCPCS: 70450; 73502; 99284

== ENCOUNTER → 2023-04-28 | Outpatient (REF) | payer MEDICARE, SELFPAY ==
[2023-04-28 10:14] LABS: Vitamin B12 389 pg/mL (211-911)
== END ==
LOC: OLS.DANBUR 05:00
PROVIDERS: PCP Family Medicine; Visit Provider Family Medicine
DX: I48.91 Unspecified atrial fibrillation (principal); F03.90 Unspecified dementia, unspecified severity, without behavioral disturbance, psychotic disturbance, mood disturbance, and anxiety
CPT/HCPCS: 36415; 82607

== ENCOUNTER → 2023-05-13 | Outpatient (REF) | payer MEDICARE, SELFPAY ==
[2023-05-13 09:02] LABS: Anion Gap 2 (5-15); BUN 22 mg/dL (7-18); BUN/Creat Ratio 30.3 RATIO (10-20); Chloride 111 mmol/L (98-107); Creatinine, Serum 0.73 mg/dL (0.55-1.02); EST Glomerular Filtration Rate 81 mL/min (>60); Est Glom Filt Rate - Afr Amer 99 mL/min (>60); Glucose 97 mg/dL (74-106); Potassium 3.7 mmol/L (3.5-5.1); Sodium Level 142 mmol/L (136-145)
== END ==
LOC: OLS.DANBUR 04:00
PROVIDERS: PCP Family Medicine; Referring Provider Family Medicine; Visit Provider Family Medicine
DX: I48.91 Unspecified atrial fibrillation (principal); F03.90 Unspecified dementia, unspecified severity, without behavioral disturbance, psychotic disturbance, mood disturbance, and anxiety
CPT/HCPCS: 36415; 80048

== ENCOUNTER 2023-05-21 08:43 | Emergency (ER) | payer MEDICARE, SELFPAY ==
[2023-05-21 08:44] VITALS: BP 130/73; PULSE 94; RESP 16; TEMP 36.4; O2SAT 98; BMI 26.0
--- NOTE | 2023-05-21 08:53 | EX.ED.UPPERE ---
HPI History of Present Illness Chief Complaint: Wound Informant: EMS and SNF Narrative Narrative: Patient is sent from local assisted living because of a blood blister on her left forearm that opened up today and they could not get it to stop bleeding. She is on apixaban, and has a history of atrial fibrillation. She has significant dementia, she has no complaints and she states her arm does not hurt. [facility] Medical History Anxiety Dementia Diastolic dysfunction Hyperlipidemia Longstanding persistent atrial fibrillation Paroxysmal atrial fibrillation Secondary pulmonary arterial hypertension Sick sinus syndrome Home Medications apixaban 5 mg tablet (Eliquis) 5 mg PO BID 05/09/19 [History Last Taken 05/04/21] donepezil 5 mg tablet (Aricept) 5 mg PO DAILY 05/09/19 [History Last Taken Unknown] memantine 10 mg tablet (Namenda) 10 mg PO BID 05/09/19 [History Last Taken Unknown] mirabegron 25 mg tablet,extended release 24 hr (Myrbetriq) 25 mg PO DAILY 05/09/19 [History Last Taken Unknown] simvastatin 20 mg tablet 20 mg PO QHS 05/09/19 [History Last Taken Unknown] alprazolam 0.25 mg tablet (Xanax) 0.25 mg PO DAILY 06/01/22 [History Last Taken Unknown] loperamide 2 mg capsule 2 mg PO Q6H PRN 06/01/22 [History Last Taken Unknown] Allergy/AdvReac Type Severity Reaction Status Date / Time erythromycin base Allergy Rash Verified 05/21/23 08:49 Family History Other Poor historian Surgical History 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) Presence of permanent cardiac pacemaker (05/06/21) Social History Smoking Status: Never smoker ROS ROS ED Constitutional Constitutional ED: Denies chills or fever(s) Musculoskeletal Musculoskeletal: Denies extremity pain or neck pain Integumentary Reports wounds; Denies Abrasions or rash Neurologic Neurologic: Denies paresthesias or weakness EXAM Physical Exam Const Vital Signs: 05/21/23 08:44 Temperature 97.6 F L Temperature Source Temporal Pulse Rate 94 Respiratory Rate 16 Blood Pressure 130/73 H Blood Pressure Mean 92 Pulse Ox 98 Oxygen Delivery Method Room Air Positive well nourished and well developed General Appearance ED: well developed and NAD Neck full ROM and supple Back/Spine normal ROM and normal to inspection Neuro no focal motor deficits and no sensory deficits noted Sensorium / Orientation: alert and orientation impaired Psych mental status grossly normal Psych Narrative: Pleasant and cooperative, demented Skin Skin Narrative: 2 cm in diameter wound dorsal left mid-proximal forearm, after unwrapping multiple layers of pressure dressing involving Kerlix, ABD pad, Telfa, there is no active bleeding, there is fresh clot on the wound, all compartments are soft and nondistended and the patient has full range of motion of the elbow and wrist without difficulty. Intact 2+/4 radial pulse before and after unwrapping the dressing. No signs of infection. Rashes: no rashes MDM MDM MDM Narrative Medical decision making narrative: Wound looks good, no signs of infection, not actively bleeding. Patient is DNR comfort care only according to paperwork. RNs to place clean dressing to wound w/ surgifoam and bacitracin, will call for transport back to facility. Discussed w/ a friend of the family at bedside (no local family), and answered all her questions, as well as my recommendation to hold a dose of Eliquis and to discuss w/ PCP regarding further need for anticoagulation, since on it for stroke prophylaxis. Discharge Plan Triage Chief Complaint: Wound ED Provider: Mumtaz Jalloh Dx/Rx/DC Orders Clinical Impression: Anticoagulated, Bleeding from wound Instructions: First Aid: Bleeding Prescriptions: Continued memantine [Namenda] 10 mg tablet 10 mg PO BID donepezil [Aricept] 5 mg tablet 5 mg PO DAILY simvastatin 20 mg tablet 20 mg PO QHS Myrbetriq 25 mg tablet extended release 24 hr 25 mg PO DAILY loperamide 2 mg capsule 2 mg PO Q6H PRN alprazolam [Xanax] 0.25 mg tablet 0.25 mg PO DAILY Held Eliquis 5 mg tablet 5 mg PO BID Hold Instructions: Resume on 05/22/23. hold today, or for next dose if already given today; discuss w/ PCP regarding possibly changing Eliquis to aspirin, which would still decrease risk of stroke from Afib but put her at lower risk of dangerous bleeding/hemorrhage. Primary Care Provider: Logan Phan Referrals: Logan Phan MD [Primary Care Provider] - (call for reevaluation of anticoagulation) Activity Restrictions/Additional Instructions: leave dressing intact unless bleeding through for 48 hrs. when replacing, try to leave small piece of surgifoam at the skin surface intact, it will dissove over time and help wound to clot. Disposition Disposition: Home, Self Care
== END 2023-05-21 09:55 | disposition home or self-care (01) ==
LOC: ED 09:20
PROVIDERS: Emergency Provider Emergency Medicine; PCP Family Medicine; Visit Provider Emergency Medicine
DX: S51.802A Unspecified open wound of left forearm, initial encounter (principal); F03.90 Unspecified dementia, unspecified severity, without behavioral disturbance, psychotic disturbance, mood disturbance, and anxiety; I27.21 Secondary pulmonary arterial hypertension; I48.11 Longstanding persistent atrial fibrillation; X58.XXXA Exposure to other specified factors, initial encounter; E78.5 Hyperlipidemia, unspecified; I10 Essential (primary) hypertension; Z79.01 Long term (current) use of anticoagulants; Z79.899 Other long term (current) drug therapy; Z95.0 Presence of cardiac pacemaker
CPT/HCPCS: 99284